=== PATIENT | female | born 1995 ===

== ENCOUNTER → 2021-07-11 | Outpatient (CLI) | payer OTHER | LOC: M WHC 12:53 | PROVIDERS: ATTEND Nurse Practitioner Primary Care | DX: N64.4 Mastodynia (principal) ==

== ENCOUNTER → 2021-07-15 | Outpatient (CLI) | payer OTHER | LOC: M WHC 12:15 | PROVIDERS: ATTEND Family Medicine | DX: N64.4 Mastodynia (principal) ==